=== PATIENT | male | born 1955 | race Caucasian/White ===

== ENCOUNTER 2021-06-19 08:53 | Outpatient (CLI) | payer MEDICARE, OTHER ==
[2021-06-19 09:21] LABS: TOTAL HEMOGLOBIN 10.6 G/dl (14.0-18.0)
== END 2021-06-19 23:59 | disposition home or self-care (01) ==
LOC: RT 08:53
PROVIDERS: ATTEND Internal Medicine
DX: R06.02 Shortness of breath (principal)
CPT/HCPCS: 85018; 94010; 94727; 94729

== ENCOUNTER 2023-01-04 08:32 | Outpatient (CLI) | payer MEDICARE, OTHER ==
[~2023-01-04 08:32] MED LIST: GLIM4TAB7 PO; LINA5TAB4 PO; LISI20TA28 PO; METF-438 PO; MULT-1085 PO; PIOG30TA71 PO; ROSU20TA31 PO
== END 2023-01-04 23:59 | disposition home or self-care (01) ==
LOC: RAD 08:32
PROVIDERS: ATTEND Thoracic Surgery (Cardiothoracic Vascular Surgery)
DX: I74.3 Embolism and thrombosis of arteries of the lower extremities (principal); I25.10 Atherosclerotic heart disease of native coronary artery without angina pectoris; N28.1 Cyst of kidney, acquired
CPT/HCPCS: 71250; 93970